=== PATIENT | male | born 1980 | race Hispanic/Latino ===

== ENCOUNTER 2016-11-09 08:45 | Emergency (ER) | payer SELFPAY ==
[2016-11-09] MEDS ORDERED: ANTI-FUNGAL12 EX (09:41)
[2016-11-09 09:42] VITALS: BP 124/80
== END 2016-11-09 09:45 | disposition home or self-care (01) | DRG 607 ==
LOC: ED 08:45
DX: L30.4 Erythema intertrigo (principal); F17.210 Nicotine dependence, cigarettes, uncomplicated